=== PATIENT | male | born 1970 | race Caucasian/White ===

== ENCOUNTER 2020-07-22 01:56 | Emergency (ER) | payer OTHER, SELFPAY ==
[2020-07-22 03:03] VITALS: BP 129/75; PULSE 65; RESP 14; TEMP 37.3; O2SAT 97; BMI 23.6
--- NOTE | 2020-07-22 04:36 | ED.BACK ---
HPI - Back Pain/Injury General Chief Complaint: Back Pain/Injury Stated Complaint: Back Pain Time Seen by Provider: 07/22/20 02:14 Source: patient Mode of arrival: ambulatory History of Present Illness HPI Narrative: This is a 49-year-old male who presents with lower back pain without radiation and denies any bowel or bladder dysfunction as well as denying any fever, chills, nausea, vomiting, shortness of breath or chest pain/palpitations. Related Data Allergies Allergy/AdvReac Type Severity Reaction Status Date / Time No Known Allergies Allergy Unverified 11/02/19 17:48 Review of Systems Review of Systems: Pertinent positives and negatives as stated in HPI and 10 point review of systems is otherwise negative. [facility] [place] Past Medical History Source: nursing notes reviewed Medical History Opiate addiction Social History Social History Patient Tobacco Use Status: Current everyday Tobacco user Use of substances other than those prescribed or required for medical reasons: No Advance Directives: No Advance Directives Information Provided: Yes Physical Exam Vital Signs: Vital Signs: Last Vital Signs Temp 98.0 F 07/22/20 05:11 Pulse 63 07/22/20 05:11 Resp 16 07/22/20 06:00 BP 144/77 H 07/22/20 05:11 Pulse Ox 99 07/22/20 05:11 Body Mass Index 23.6 VITAL SIGNS: Reviewed. GENERAL: Well developed, well nourished, in no acute distress. HEAD: Normocephalic/atraumatic EYES: PERRLA, EOMI OROPHARYNX: no oral lesions noted, posterior pharynx clear NECK: Supple, no adenopathy LUNGS: Normal breath sounds. No adventitious sounds or accessory muscle use. SpO2<97> CARDIOVASCULAR: Regular rate and rhythm without noted murmurs ABDOMEN: Soft, non-tender, non-distended with bowel sounds. BACK: No muscle spasm noted and no midline vertebral tenderness but tenderness along the bilateral paraspinal. SKIN: Inspection of the skin reveals no rashes NEUROLOGIC: Alert and oriented x 4. Strength and sensation to light touch were grossly intact x 4. Course Course Course Narrative: 49-year-old male with history and clinical presentation consistent with lower back discomfort without concern for cauda equina or sciatica. Urinalysis was obtained for further evaluation and patient was also provided with combination analgesics. Patient received medications and then left without his discharge paperwork. Discharge Plan Discharge Clinical Impression: Back pain Patient Disposition: Home, Self-Care Instructions: Back Pain (ED) Additional Instructions: Return to the ER for any worsening of symptoms Referrals: Physician,Unknown [Primary Care Provider] - 2 days Print Language: Swedish
[2020-07-22] MEDS: Lidocaine 4 % Patch ADH..PATCH 1 PATCH TRANSDERMA (05:05)
[2020-07-22] MEDS: Acetaminophen 325 MG TABLET 975 MG PO (05:05)
[2020-07-22] MEDS: Ibuprofen 400 MG TABLET PO (05:06)
[2020-07-22 05:11] VITALS: BP 144/77; PULSE 63; RESP 16; TEMP 36.7; O2SAT 99
--- NOTE | 2020-07-22 05:13 | PC.NURSE ---
PT MEDICATED PER MAR. CONTINUES TO REST IN BED SKIN PWD RESPIRATIONS EVEN UNLABORED. AWAITING IMPROVEMENT IN SYMPTOMS AND MD REEVAL.
[2020-07-22 06:00] VITALS: RESP 16
== END 2020-07-22 07:47 | disposition home or self-care (01) ==
PROVIDERS: Emergency Provider Student in an Organized Health Care Education/Training Program
DX: M54.5 Low back pain (principal)
CPT/HCPCS: 99283; 99284

== ENCOUNTER 2022-08-27 12:06 | Outpatient (REF) | payer MEDICAID, SELFPAY ==
[2022-08-27 13:19] LABS: MANUAL DIFF FLAG NO
[2022-08-27 13:36] LABS: Basophils Percent Auto 0.3 % (0-2); Eosinophils Absolute Auto 0.1 X10*3/uL (0.0-0.4); Eosinophils Percent Auto 1.2 % (0-4); Hematocrit 38.1 % (42.0-52.0); Hemoglobin 12.8 g/dl (14.0-18.0); Imm Gran Abs Auto 0.03 X10*3/uL (0.00-0.03); Imm Gran Pct Auto 0.3 % (0.0-0.4); Lymphocytes Absolute Auto 2.9 X10*3/uL (1.2-4.9); Lymphocytes Percent Auto 27.5 % (20-40); Mean Corpuscular HGB Conc 33.6 g/dl (31.0-36.0); Mean Corpuscular Volume 89.4 fL (80.0-98.0); Mean Platelet Volume 10.2 fL (9.4-12.4); Monocytes Absolute Auto 0.5 X10*3/uL (0.1-1.2); Monocytes Percent Auto 5.1 % (2-11); Neutrophils Absolute Auto 6.9 x10*3/uL (2.0-8.3); Neutrophils Percent Auto 65.6 % (45-73); Platelet Count 317 X10*3/uL (160-400); Red Blood Count 4.26 X10*6/uL (4.60-5.80); Red Cell Distribution Width 12.6 % (11.0-16.0); White Blood Count 10.4 X10*3/uL (4.8-10.8)
[2022-08-27 13:43] LABS: Estimated Average Glucose 108 mg/dL; Hemoglobin A1c % 5.4 %
[2022-08-27 14:34] LABS: Alanine Aminotransferase 15 U/L (0-40); Albumin Level 3.9 g/dL (3.5-5.0); Alkaline Phosphatase 103 U/L (39-117); Anion Gap 14 (12-20); Aspartate Amino Transferase 17 U/L (5-37); Bilirubin Total 0.2 mg/dL (0.0-1.0); Blood Urea Nitrogen 13 mg/dL (9-16); Calcium 9.4 mg/dL (8.4-10.2); Carbon Dioxide 24 mmol/L (22-29); Chloride 109 mmol/L (96-108); Cholesterol 138 mg/dL; Estimated Glomerular Filt Rate > 60; Glucose Random 124 mg/dL (60-115); HDL Cholesterol 36 mg/dL; LDL Cholesterol Calculated 80 mg/dl; Potassium 3.3 mmol/L (3.3-5.1); Sodium 144 mmol/L (135-145); Total Protein 6.9 g/dL (6.5-8.0); Triglycerides 114 mg/dL
[2022-08-27 14:39] LABS: TSH reflex Free T4 1.05 uIU/mL (0.32-4.0)
[2022-08-27 14:56] LABS: Folate 14.3 ng/mL (> or = 4.0); Vitamin B12 398 pg/mL (200-900)
[2022-08-27 17:05] LABS: Creatinine Urine 272.83 mg/dL; Microalbum/Creatinine Ratio Ur 5.4 ug/mg cr
[2022-08-28 05:27] LABS: Syphilis Screen Nonreactive (Nonreactive)
[2022-08-28 05:34] LABS: HBsAGNum1 0.36 S/CO (0.00-0.99); HIV AB/AG Nonreactive (Nonreactive); HIV Num 1 0.05 S/CO (0.00-0.99); Hepatitis B Core Antibody Nonreactive (Nonreactive); Hepatitis B Surface Antigen Negative (Negative); ~Hepatitis B Surface Antibody REACTIVE (Nonreactive)
[2022-08-28 12:19] LABS: ~HepC Num1 0.19 S/CO (0.00-0.79); ~Hepatitis C Antibody Nonreactive (Nonreactive)
[2022-08-28 13:39] LABS: CT PCR NOT DETECTED (Not Detect.); NG PCR NOT DETECTED (Not Detect.)
[2022-08-29 20:29] LABS: TS Negative Control Passed; TS Panel A 2; TS Panel B 5; TS Positive Control Passed; TSpotTB Borderline (Negative)
[2022-09-02 18:04] LABS: VITAMIN D (1,25 OH) D3 52 pg/mL; Vit D (1,25-Dihydroxy) Total 52 pg/mL (18-72); Vitamin D (1,25 OH) D2 <8 pg/mL
== END 2022-08-27 12:07 | disposition home or self-care (01) ==
LOC: HO.HHCL 12:06
PROVIDERS: Visit Provider Student in an Organized Health Care Education/Training Program
DX: Z00.00 Encounter for general adult medical examination without abnormal findings (principal)
CPT/HCPCS: 0353U; 80053; 80061; 82043; 82607; 82652; 82746; 83036; 84443; 85025; 86481; 86704; 86706; 86780; 86803; 87340; 87389

== ENCOUNTER 2022-09-10 13:42 | Emergency (ER) | payer MEDICAID, SELFPAY ==
[2022-09-10 13:53] VITALS: BP 139/91; BP 151/87; PULSE 75; PULSE 91; RESP 16; TEMP 37; O2SAT 92; O2SAT 95; BMI 32.2
[2022-09-10 14:01] VITALS: BP 127/67; PULSE 110; RESP 18; O2SAT 97
--- NOTE | 2022-09-10 14:39 | ED.GENADULT ---
HPI - General Adult General Chief complaint: ETOH/Substance Use Stated complaint: SUBSTANCE USE,-NARCAN GIVEN PER EMS Time Seen by Provider: 09/10/22 14:11 Source: patient and EMS Mode of arrival: EMS Limitations: no limitations History of Present Illness HPI narrative: 51 yo male with history of substance use presents to the ER after being found at the [place] bus stop lethargic. 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 Arrives alert, oriented x3. No physical complaints. Admits to using 2 bags of cocaine, denies additional substance use. No SI/HI. Does not want to speak to a legal recovery specialist or go to detox. Related Data Allergies Allergy/AdvReac Type Severity Reaction Status Date / Time No Known Allergies Allergy Unverified 11/02/19 17:48 Review of Systems Review of Systems: Yes all other systems are reviewed and are negative Constitutional: Constitutional: Reports no additional constitutional complaints, Denies body ache(s), Denies chills, Denies fever(s), Denies headache(s) and Denies weakness Eyes: Eyes: Reports no additional eye complaints and Denies change in vision ENT: Reports system reviewed and no additional complaints, except as documented, Denies dizziness, Denies headache(s), Denies nasal congestion, Denies nasal discharge and Denies neck pain Cardiovascular: Cardiovascular: Reports no additional cardiovascular complaints, Denies chest pain, Denies leg edema and Denies dyspnea Respiratory: Respiratory: Reports no additional respiratory complaints, Denies cough and Denies dyspnea Gastrointestinal: Gastrointestinal: Reports no additional gastrointestinal complaints, Denies abdominal pain, Denies diarrhea, Denies nausea and Denies vomiting Genitourinary: Genitourinary: Denies urinary incontinence Musculoskeletal: Musculoskeletal: Reports no additional musculoskeletal complaints, Denies back pain, Denies arthralgias, Denies joint swelling, Denies neck pain, Denies numbness and Denies tingling Integumentary/Breasts: Skin/Breast: Reports system reviewed and no additional complaints, except as docu and Denies rash Neurologic: Reports system reviewed and no additional complaints, except as documented, Denies dizziness, Denies headache(s), Denies numbness, Denies tingling and Denies weakness Psychiatric: Psychiatric: Denies homicidal ideation and Denies suicidal ideation PMFSH Past Medical History Attestation statement: The following information was validated with the patient. Source: old records reviewed and nursing notes reviewed Medical History Opiate addiction Social History Social History Patient Tobacco Use Status: Current everyday Tobacco user Advance Directives: No Advance Directives Information Provided: Yes Physical Exam ED Vital Signs: Vital Signs - 24 hr 09/10/22 13:53 09/10/22 14:01 Temperature 98.6 F Pulse Rate 75 110 H Respiratory Rate 16 18 Blood Pressure 151/87 H 127/67 Pulse Oximetry 92 97 Oxygen Delivery Method Room Air Room Air BMI result Body Mass Index 32.2 Const General: cooperative, healthy appearing, comfortable and no acute distress Orientation/consciousness: patient oriented x3 Limitations: no limitations HENMT Head: Yes normal to inspection Ears: hearing grossly normal bilaterally Eyes General: appearance normal, both eyes and all related structures Pupils: Equal, round and reactive pupils present Neck Neck: Yes normal visual inspection Chest Chest palpation & inspection: normal inspection of the chest Resp Effort & Inspection: normal respiratory effort Auscultation: clear to auscultation bilaterally Cardio Rate: regular rate Rhythm: regular rhythm Peripheral pulses: Peripheral pulses 2+ throughout GI Inspection: Yes normal to inspection Palpation (GI): Soft to palpation and nontender Skin General skin exam: no rashes or lesions noted Neuro General: patient oriented x3 and moves all extremities Cranial nerves: Yes Equal, round and reactive pupils present Cognition (Neuro): normal cognition Gait exam (Neuro): Normal gait present Extrem General: Yes normal to inspection Medical Decision Making Medical Decision Making MDM Narrative: 51 yo male here after being found at the bus stop lethargic, admits to using 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 Denies additional substance use. No SI/HI. No physical complaints. Not interested in going to detox or talking to legal recovery specialist. No concern for acute ingestion or trauma Patient is alert and oriented. Steady gait. Tolerating liquids with no difficulty. Offered to go Narcan and exam Differential Diagnosis Differential Diagnoses: The differential diagnosis associated with the presentation includes polysubstance use Independent Historian Clinical information obtained from an independent historian. History obtained from or confirmed by: EMS Discharge Plan Discharge Clinical Impression: Substance use Patient Disposition: Home, Self-Care Instructions: Polysubstance Abuse (ED) Referrals: Physician,Unknown J [Primary Care Provider] - 1 week Interventions: ED Discharge Assessment Last Done: 09/10/22 14:56 Discharge Date/Time: 09/10/22 14:56
== END 2022-09-10 14:56 | disposition home or self-care (01) ==
PROVIDERS: Emergency Provider Emergency Medicine Emergency Medical Services
DX: F14.129 Cocaine abuse with intoxication, unspecified (principal); R53.1 Weakness
CPT/HCPCS: 99283

== ENCOUNTER 2022-09-10 16:14 | Outpatient (REF) | payer MEDICAID, SELFPAY ==
[2022-09-14 08:59] LABS: Buprenorphine NEGATIVE; Naloxone NEGATIVE; Norbuprenorphine NEGATIVE
== END 2022-09-10 16:15 | disposition home or self-care (01) ==
LOC: HO.HHCLNP 16:14
PROVIDERS: Visit Provider Family Medicine
DX: F11.20 Opioid dependence, uncomplicated (principal)
CPT/HCPCS: 80348; 80362

== ENCOUNTER 2022-10-29 15:39 | Outpatient (REF) | payer MEDICAID, SELFPAY ==
[2022-10-29 16:13] LABS: MANUAL DIFF FLAG NO
[2022-10-29 16:21] LABS: Basophils Percent Auto 0.4 % (0-2); Eosinophils Absolute Auto 0.2 X10*3/uL (0.0-0.4); Eosinophils Percent Auto 1.6 % (0-4); Hematocrit 38.8 % (42.0-52.0); Hemoglobin 13.3 g/dl (14.0-18.0); Imm Gran Abs Auto 0.08 X10*3/uL (0.00-0.03); Imm Gran Pct Auto 0.9 % (0.0-0.4); Lymphocytes Absolute Auto 3.6 X10*3/uL (1.2-4.9); Lymphocytes Percent Auto 38.6 % (20-40); Mean Corpuscular HGB Conc 34.3 g/dl (31.0-36.0); Mean Corpuscular Hemoglobin 30.9 pg (27.0-33.0); Mean Corpuscular Volume 90.2 fL (80.0-98.0); Mean Platelet Volume 10.2 fL (9.4-12.4); Monocytes Absolute Auto 0.6 X10*3/uL (0.1-1.2); Monocytes Percent Auto 5.9 % (2-11); Neutrophils Absolute Auto 4.9 x10*3/uL (2.0-8.3); Neutrophils Percent Auto 52.6 % (45-73); Platelet Count 323 X10*3/uL (160-400); Red Cell Distribution Width 13.8 % (11.0-16.0); White Blood Count 9.3 X10*3/uL (4.8-10.8)
[2022-10-29 16:57] LABS: Iron 77 mcg/dL (45-160); Percent Iron Saturation 23 % (15-50); Total Iron Binding Capacity 329 mcg/dL (228-428); Unsaturated Iron Binding 252 ug/dL
[2022-10-29 17:06] LABS: Ferritin 35 ng/mL (20-250)
[2022-10-31 16:48] LABS: TS Negative Control Passed; TS Panel A 0; TS Panel B 2; TS Positive Control Passed; TSpotTB Negative (Negative)
== END 2022-10-29 15:40 | disposition home or self-care (01) ==
LOC: HO.HHCL 15:39
PROVIDERS: Visit Provider Student in an Organized Health Care Education/Training Program
DX: D50.9 Iron deficiency anemia, unspecified (principal); R76.12 Nonspecific reaction to cell mediated immunity measurement of gamma interferon antigen response without active tuberculosis
CPT/HCPCS: 36415; 82728; 83540; 85025; 86481

== ENCOUNTER 2022-11-17 14:04 | Outpatient (AMB) | payer MEDICAID, SELFPAY ==
[2022-11-17 14:05] VITALS: BP 128/84; PULSE 86; BMI 33.2
--- NOTE | 2022-11-17 14:05 | A.OFFVIS_ITS ---
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 EKG Intake Note: New patient abnormal EKG feeling good Electrophysiology Nurse Practitioner Required: Yes Electrophysiology Nurse Practitioner Name: Oscar marrufo Allergies No Known Allergies Allergy (Unverified 11/02/19 17:48) Medication List - Last Reconciled 11/17/22 by Joaquin Padilla MD acetaminophen 325 mg PO Q8H PRN albuterol sulfate 90 mcg/actuation (Ventolin HFA) 2 puffs inhalation Q6H PRN amoxicillin-pot clavulanate 875-125 mg 1 tab PO BID aripiprazole 5 mg PO QAM buprenorphine-naloxone 8-2 mg (Suboxone) 10 mg sublingual TID clonidine HCl 0.1 mg PO BID famotidine 20 mg PO DAILY furosemide 20 mg PO QAM gabapentin 400 mg PO TID lisinopril 40 mg PO QAM loratadine 10 mg PO DAILY meloxicam 7.5 mg PO QAM naloxone 4 mg/actuation intranasal nortriptyline 50 mg PO BEDTIME risperidone 1 mg PO QAM sertraline 50 mg PO QAM umeclidinium-vilanterol 62.5-25 mcg/actuation (Anoro Ellipta) 1 ea inhalation QAM zolpidem ER 12.5 mg PO BEDTIME PRN HPI HPI Comments History of Present Illness Details Elian was referred here for abnormal EKG. He shows of obtained with help of a certified r d manager over the phone. Patient recent EKG performed because of longstanding hypertension and complaining of cough and congestion. EKG shows normal sinus rhythm with left anterior fascicular block with incomplete right bundle-branch block. Patient is referred here for further evaluation. He denies any clear symptoms exertional chest pain or shortness of breath. He does get exertional fatigue. He denies any orthopnea PND, leg edema. He is scheduled to undergo sleep study in January. Denies any prolonged palpitation irregular heartbeat. He has longstanding history of hypertension which is currently well treated and says a blood pressure is generally well optimized. He also has prior history of opioid use currently on Suboxone therapy. He is also currently on low-dose lie 6 therapy, says at 1 time he was told that he had congestive heart failure. He has had recurrent pneumonia in the past. Unfortunately smokes and continues to smoke about 10 cigarettes a day. He is trying to cut down. He said he also does not exercise much and has gained some weight. [facility] Medical History HTN (hypertension) Opiate addiction Family History (Updated 11/17/22 @ 14:12 by Radhika Johnson [facility]) Father No problems noted. Mother No problems noted. Social History Patient Tobacco Use Status: Current everyday Tobacco user Review of Systems Const Denies chills, Denies daytime sleepiness, Denies fatigue, Denies fever(s), Denies frequent falls, Denies poor appetite, Denies snoring, Denies stops breathing during sleep, Denies weakness, Denies weight gain and Denies weight loss Eyes Denies loss of vision ENT Denies dizziness and Denies hearing loss Card Denies chest pain, Denies claudication, Denies leg edema, Denies lightheadedness, Denies palpitations, Denies dyspnea, Denies dyspnea on exertion and Denies orthopnea Resp Denies cough, Denies excessive phlegm production, Denies dyspnea, Denies dyspnea on exertion, Denies snoring and Denies wheezing GI Denies abdominal pain, Denies hematochezia, Denies change in bowel habits, Denies nausea and Denies vomiting Denies dysuria and Denies urinary frequency Musc Denies arthralgias, Denies muscle weakness, Denies numbness and Denies other (frequent falls) Skin/Breast Denies nail changes and Denies rash Neuro Denies Abnormal speech present, Denies dizziness, Denies frequent falls, Denies loss of vision, Denies memory loss, Denies numbness and Denies weakness Psych Denies depression and Denies memory loss Endo Denies fatigue and Denies palpitations Ga/Lymph Reports easy bruising and Reports other (anemia) Aller/Immun Denies wheezing Physical Exam Vital Signs: Last Vital Signs Pulse 86 11/17/22 14:05 BP 128/84 11/17/22 14:05 BMI result Body Mass Index 33.2 Const General: cooperative, comfortable, no acute distress, alert and awake Nutritional Appearance: obese Orientation/consciousness: patient oriented x3 Limitations: no limitations HEENT Head: Yes normocephalic and Yes atraumatic Neck Neck: Yes trachea midline, Yes supple and Yes no JVD Resp Effort & Inspection: normal respiratory effort Auscultation: clear to auscultation bilaterally Cardio Jugular venous distension: no JVD Palpation: normal PMI Rate: regular rate Rhythm: regular rhythm Heart sounds: S1 normal heart sound present, S2 normal heart sound present, no click, no gallops, no murmurs and no rubs GI Inspection: Yes normal to inspection and Yes obesity Auscultation: normal bowel sounds Skin General skin exam: no rashes or lesions noted Neuro General: patient oriented x3 and no focal motor deficits Speech: No Abnormal speech present Extrem General: Yes no clubbing, cyanosis or edema Assessment & Plan Assessment & Plan (1) Abnormal EKG: Code(s): R94.31 - Abnormal electrocardiogram [ECG] [EKG] Plan: Abnormal EKG in this middle-aged man with longstanding history of hypertension. Possibilities include hypertensive heart disease given longstanding hypertension. Also possibility of obstructive sleep apnea related changes with RV strain is possibility. Suggest an echocardiogram to further evaluate for the same. Further treatment based on the findings. Currently his blood pressure is well optimized advised to continue current therapy. Clinically does appear to have any signs of heart failure. Agree with obstructive sleep apnea assessment as there is high clinical likelihood for the same. Treatment if he has underlying obstructive sleep apnea. Encouraged to continue to participate in regular physical activity and weight loss program in the long run to help his overall health situation. Also complete abstinence from smoking was discussed. He understands agrees. Will follow up in the clinic if need be. Thank you for allowing me to partake in his care Orders: Orders CA echo transthoracic complete Today R94.31 - Abnormal electrocardiogram [ECG] [EKG] Coding Level of Care Code New Pt Level 3 (21553) Diagnoses Abnormal EKG R94.31
== END 2022-11-17 14:29 | disposition home or self-care (01) ==
PROVIDERS: PCP Student in an Organized Health Care Education/Training Program; Visit Provider Internal Medicine Cardiovascular Disease
DX: R94.31 Abnormal electrocardiogram [ECG] [EKG] (principal)
CPT/HCPCS: 99203

== ENCOUNTER → 2022-11-17 14:04 | Outpatient (BNVA) | payer MEDICAID, SELFPAY | PROVIDERS: PCP Student in an Organized Health Care Education/Training Program; Visit Provider Internal Medicine Cardiovascular Disease ==

== ENCOUNTER 2022-11-19 10:39 | Outpatient (REF) | payer MEDICAID, SELFPAY | END 2022-11-19 10:40 | disposition home or self-care (01) | LOC: HO.HHCL 10:39 | PROVIDERS: Visit Provider Student in an Organized Health Care Education/Training Program | DX: D50.9 Iron deficiency anemia, unspecified (principal); R76.12 Nonspecific reaction to cell mediated immunity measurement of gamma interferon antigen response without active tuberculosis | CPT/HCPCS: 36415; 86481 ==

== ENCOUNTER 2022-12-22 22:02 | Emergency (ER) | payer MEDICAID, SELFPAY ==
--- NOTE | ~2022-12-22 | XR_ITS ---
EXAMINATION: XR HIP, LEFT CLINICAL INFORMATION: Pain after fall COMPARISON: CT abdomen pelvis 03/03/2013 TECHNIQUE: Single view pelvis with two views of the left hip. FINDINGS: No acute pelvic or hip fracture. There are degenerative changes seen in the right hip with osteophytes. Mild sclerotic changes are seen at the pubic symphysis. XR/XR hip LT w PEL1V IMPRESSION: No evidence of an acute traumatic osseous injury. Degenerative changes right hip.
[2022-12-22 22:08] VITALS: BP 140/92; PULSE 84; O2SAT 97
[2022-12-22 22:10] VITALS: BMI 32.5
--- NOTE | 2022-12-22 22:25 | ED.PSYCH ---
HPI - Psych General Chief Complaint: ETOH/Substance Use Stated Complaint: SUBSTANCE ABUSE, L HIP PAIN, BACK PAIN Time Seen by Provider: 12/22/22 22:09 Source: patient and old records reviewed Mode of arrival: EMS Limitations: no limitations History of Present Illness HPI Narrative: 52 yo male with hx of HTN, asthma, prior back pain, snorts cocaine and admits to being homeless for the last 3 days states he needs to get back into a program and sober living. He denies IVDA. He states he fell about a month ago and injured his L hip he now has pain and has been having to walk a lot more. He called 911 for help tonight due to pain. NO SI/HI. He wants to go to detox. MD complaint: substance abuse Onset (ago): week(s) Duration: intermittent History of same: Yes Relieving factors: none Exacerbating factors: drug use Context: recent drug abuse and significant life stressor Associated psychiatric symptoms: none Associated symptoms: other (L hip pain) Treatments prior to arrival: none Related Data Home Medications Medication Instructions Recorded Confirmed acetaminophen 325 mg tablet 325 mg PO Q8H PRN fever 11/17/22 11/17/22 albuterol sulfate 90 mcg/actuation 2 puff inhalation Q6H PRN wheezing 11/17/22 11/17/22 aerosol inhaler (Ventolin HFA) amoxicillin 875 mg-potassium 1 tab PO BID 11/17/22 11/17/22 clavulanate 125 mg tablet aripiprazole 5 mg tablet 5 mg PO QAM 11/17/22 11/17/22 buprenorphine 8 mg-naloxone 2 mg 10 mg sublingual TID 11/17/22 11/17/22 sublingual film (Suboxone) clonidine HCl 0.1 mg tablet 0.1 mg PO BID 11/17/22 11/17/22 famotidine 20 mg tablet 20 mg PO DAILY 11/17/22 11/17/22 furosemide 20 mg tablet 20 mg PO QAM 11/17/22 11/17/22 gabapentin 400 mg capsule 400 mg PO TID 11/17/22 11/17/22 lisinopril 40 mg tablet 40 mg PO QAM 11/17/22 11/17/22 loratadine 10 mg tablet 10 mg PO DAILY 11/17/22 11/17/22 meloxicam 7.5 mg tablet 7.5 mg PO QAM 11/17/22 11/17/22 naloxone 4 mg/actuation nasal spray intranasal 11/17/22 11/17/22 nortriptyline 50 mg capsule 50 mg PO BEDTIME 11/17/22 11/17/22 risperidone 1 mg tablet 1 mg PO QAM 11/17/22 11/17/22 sertraline 50 mg tablet 50 mg PO QAM 11/17/22 11/17/22 umeclidinium 62.5 mcg-vilanterol 1 ea inhalation QAM 11/17/22 11/17/22 25 mcg/actuation powdr for inhalation (Anoro Ellipta) zolpidem 12.5 mg tablet,extended 12.5 mg PO BEDTIME PRN insomnia 11/17/22 11/17/22 release,multiphase Allergies Allergy/AdvReac Type Severity Reaction Status Date / Time No Known Allergies Allergy Verified 12/22/22 22:16 Review of Systems Review of Systems: Constitutional : No Fever, No Chills ENT/Mouth : No Ear Pain, No Hoarseness, No sore throat Eyes: No Eye Pain, No Swelling, No Redness, No Foreign Body Cardiovascular : No Chest Pain, No SOB Respiratory : No Cough, No Dyspnea Gastrointestinal : No Nausea, No Vomiting, No Diarrhea, No abdominal Pain Genitourinary : No Dysuria, No Hematuria Musculoskeletal : positive joint pain, No Myalgias, No Joint Swelling Skin : No Skin lacerations, No rash Neuro : No Weakness, No Numbness, No Loss of Consciousness, No Dizziness, No Headache Psych : No Anxiety/Panic, No Depression, no SI/HI Heme/Lymph: no easy bruising, no Lymphadenopathy Endocrine : No Polyuria, No Polydipsia All other systems reviewed and are negative [facility] Past Medical History Attestation statement: The following information was validated with the patient. Source: old records reviewed Medical History Asthma HTN (hypertension) Opiate addiction Family History Family History (Updated 11/17/22 @ 14:12 by Radhika Johnson Henri) Father No problems noted. Mother No problems noted. Social History Social History Patient Tobacco Use Status: Current everyday Tobacco user Advance Directives: No Advance Directives Information Provided: No Physical Exam Vital Signs: Vital Signs: Last Vital Signs Temp 98.1 F 12/22/22 23:07 Pulse 73 12/22/22 23:07 Resp 18 12/22/22 23:07 BP 127/66 12/22/22 23:07 Pulse Ox 93 12/22/22 23:07 O2 Del Method Room Air 12/22/22 23:07 BMI result Body Mass Index 32.5 Appearance: Alert. Oriented X3. No acute distress. Eyes: Pupils equal, round and reactive to light. ENT: Pharynx normal. Neck: Normal inspection. Neck supple. CVS: Normal heart rate and rhythm. Pulses normal. Respiratory: No respiratory distress. Breath sounds normal. Abdomen: Soft and nontender. Skin: Skin warm and dry. Normal skin color. Normal skin turgor. Extremities: No lower extremity edema. No calf ttp . L hip no erythema, warmth or signs of effusion - he is walking around on the joint. Neuro: Oriented X 3. No motor deficit. No sensory deficit. CN-12 intact Course Course Course Narrative: Physician observation started at 1203am. Patient placed in physician observation because the patient needed more time for addiction medicine to help with possible detox and services. At the time observation was started the patient's vitals were stable, patient is alert and oriented. Neuro: nonfocal, CV RRR, Lungs clear Medical Decision Making Medical Decision Making [facility] Narrative: 52 yo male with PMH of asthma, HTN, substance abuse - no IVDA but sniffs at this time c/o traumatic L hip pain from a fall no fevers reported no IVDA to suggest septic joint he is not toxic and is walking on the joint. Will obtain drug screen, COVID swab and xray for fracture - refer to addiction medicine at his request Differential Diagnosis Differential Diagnoses: The differential diagnosis associated with the presentation includes arthritis, traumatic fall Admission/Observation Consideration of admission/observation: Escalation of care including admission/observation considered observe until addiction medicine can see the patient Lab Data [facility] Lab Attestation statement: I reviewed the patient's lab results. Labs: Lab Results 12/22/22 12/22/22 Range/Units 22:47 23:02 Urine Opiates Screen Not Detected (Not Detect) Urine Fentanyl Screen POSITIVE H (Not Detect) Ur Barbiturates Screen Not Detected (Not Detect) Ur Phencyclidine Scrn Not Detected (Not Detect) Ur Amphetamines Screen Not Detected (Not Detect) U Benzodiazepines Scrn Not Detected (Not Detect) Urine Cocaine Screen POSITIVE H (Not Detect) U Marijuana (THC) Screen POSITIVE H (Not Detect) COVID-19 (DARA) Negative (Negative) COVID-19 Clin Com See Note Independent Interpretation I performed an independent interpretation of an: Plain X-Ray Radiology Impression Discussion of test interpretation with radiology: I have reviewed the radiologist's reading. External Record Review External record reviewed: Inpatient record Social Determinants Patient?s care significantly limited by Social Determinants of Health including: Inadequate housing, Low income, Problems related to primary support group and Unemployment Discharge Plan Discharge Clinical Impression: Chronic left hip pain, Polysubstance abuse Patient Disposition: Still a Patient Prescriptions: No Action furosemide 20 mg tablet 20 mg PO QAM naloxone 4 mg/actuation spray,non-aerosol intranasal buprenorphine-naloxone [Suboxone] 8-2 mg film 10 mg sublingual TID Anoro Ellipta 62.5-25 mcg/actuation blister with device 1 ea inhalation QAM famotidine 20 mg tablet 20 mg PO DAILY nortriptyline 50 mg capsule 50 mg PO BEDTIME risperidone 1 mg tablet 1 mg PO QAM albuterol sulfate [Ventolin HFA] 90 mcg/actuation HFA aerosol inhaler 2 puff inhalation Q6H PRN (Reason: wheezing) sertraline 50 mg tablet 50 mg PO QAM meloxicam 7.5 mg tablet 7.5 mg PO QAM acetaminophen 325 mg tablet 325 mg PO Q8H PRN (Reason: fever) gabapentin 400 mg capsule 400 mg PO TID zolpidem 12.5 mg tablet,ext release multiphase 12.5 mg PO BEDTIME PRN (Reason: insomnia) clonidine HCl 0.1 mg tablet 0.1 mg PO BID aripiprazole 5 mg tablet 5 mg PO QAM loratadine 10 mg tablet 10 mg PO DAILY amoxicillin-pot clavulanate 875-125 mg tablet 1 tab PO BID lisinopril 40 mg tablet 40 mg PO QAM
--- NOTE | 2022-12-22 22:54 | MHC.EDTECH ---
Patient came by EMS,changed into hospital attire.Security at bedside for changeover and all belongings went to [facility]. Covid and urine sample collected and sent to lab.
[2022-12-22 23:07] VITALS: BP 127/66; PULSE 73; RESP 18; TEMP 36.7; O2SAT 93
[2022-12-22 23:24] LABS: Amphetamine Screen Urine Not Detected (Not Detect); Barbiturates, Urine Not Detected (Not Detect); Benzodiazepines Screen Urine Not Detected (Not Detect); Cannabinoid Screen Urine POSITIVE (Not Detect); Cocaine Screen Urine POSITIVE (Not Detect); Fentanyl, urine POSITIVE (Not Detect); Opiate Screen Urine Not Detected (Not Detect); Phencyclidine Screen Urine Not Detected (Not Detect)
[2022-12-22 23:31] LABS: COVID-19 Test Negative (Negative); IDNOW Serial# 08D9AD1C
[2022-12-23] MEDS: LORazepam 1 MG TABLET PO (00:51)
--- NOTE | 2022-12-23 01:53 | PC.NURSE ---
pt up and running around the ER; pt has been instructed multiple times to return to his stretcher. pt is very easily redirectable. returns to his stretcher and sleeps.
[2022-12-23 02:37] VITALS: RESP 16
[2022-12-23 07:18] VITALS: RESP 16
[2022-12-23 07:48] VITALS: BP 137/76; PULSE 72; RESP 16; TEMP 36.4; O2SAT 98
--- NOTE | 2022-12-23 09:04 | PC.NURSE ---
sleeping and snoring on off for most of the morning, nad, skin wpd, eating breakfast now
[2022-12-23 09:32] VITALS: BP 145/60; PULSE 56; RESP 16; TEMP 36.3; O2SAT 98
--- NOTE | 2022-12-23 11:19 | MHC.RECOVSUP ---
Met with pt in ED22H who is here for CATHERINE. Pt reports taking about 1/2 gram of heroin nasally and smoking 1 gram of crack a day with last use yesterday. PT has been on 8mg Suboxone but hasn't had it in 2 weeks. Pt is interested in ATS at this time, Bed search in process.
--- NOTE | 2022-12-23 12:49 | MHC.EDTECH ---
Gave patient two orange juice.
== END 2022-12-23 12:59 | disposition home or self-care (01) ==
PROVIDERS: Emergency Provider Emergency Medicine
DX: G89.29 Other chronic pain (principal); M25.552 Pain in left hip; F19.10 Other psychoactive substance abuse, uncomplicated; Z11.52 Encounter for screening for COVID-19; I10 Essential (primary) hypertension; F11.20 Opioid dependence, uncomplicated; F17.200 Nicotine dependence, unspecified, uncomplicated; Z79.899 Other long term (current) drug therapy
CPT/HCPCS: 73502; 80307; 87635; 99284

== ENCOUNTER 2022-12-24 01:01 | Emergency (ER) | payer MEDICAID, SELFPAY ==
--- NOTE | 2022-12-24 04:39 | PC.NURSE ---
pt was going to the pod and then stated he did not want to go to the pod. pt left without being seen.
== END 2022-12-24 02:19 | disposition left against medical advice (07) ==
PROVIDERS: Emergency Provider Emergency Medicine
DX: F11.20 Opioid dependence, uncomplicated (principal); F17.210 Nicotine dependence, cigarettes, uncomplicated

== ENCOUNTER 2022-12-24 21:13 | Emergency (ER) | payer OTHER, SELFPAY ==
[2022-12-24 22:03] VITALS: BP 131/86; PULSE 62; RESP 16; TEMP 36; O2SAT 98; BMI 37.5
--- NOTE | 2022-12-25 00:29 | ED.GENADULT ---
HPI - General Adult General Chief complaint: ETOH/Substance Use Stated complaint: Seeking detox treatment Time Seen by Provider: 12/24/22 23:52 Source: patient, RN notes reviewed, old records reviewed and talent acquisition lead Mode of arrival: ambulatory Limitations: language barrier History of Present Illness HPI narrative: 52-year-old primarily Yoruba-speaking male presents for evaluation of ?detox. ? Patient states that he has been on the streets since last Wednesday He reports he relapsed with heroin and cocaine after previously being clean for 11 months He reports that he is looking for detox and then ?a residential house. ? Patient last used both heroin and cocaine earlier this afternoon Denies any alcohol abuse He states that he is not suicidal but is ?looking for help with mental health. ? He states that he has a history of anxiety and depression Related Data Home Medications Medication Instructions Recorded Confirmed buprenorphine 8 mg-naloxone 2 mg 10 mg sublingual TID 12/24/22 12/25/22 sublingual film (Suboxone) clonidine HCl 0.1 mg tablet 0.1 mg PO BID 12/24/22 12/25/22 fluticasone propionate 50 1 - 2 spray intranasal QAM 12/24/22 12/25/22 mcg/actuation nasal spray,suspension gabapentin 600 mg tablet 600 mg PO TID 12/24/22 12/25/22 lisinopril 40 mg tablet 40 mg PO QAM 12/24/22 12/25/22 loratadine 10 mg tablet 10 mg PO DAILY 12/24/22 12/25/22 zolpidem 12.5 mg tablet,extended 12.5 mg PO BEDTIME PRN insomnia 12/24/22 12/25/22 release,multiphase Allergies Allergy/AdvReac Type Severity Reaction Status Date / Time No Known Allergies Allergy Verified 12/22/22 22:16 Review of Systems Constitutional: Constitutional: Denies chills and Denies fever(s) Cardiovascular: Cardiovascular: Denies chest pain and Denies dyspnea Respiratory: Respiratory: Denies dyspnea Gastrointestinal: Gastrointestinal: Denies abdominal pain Integumentary/Breasts: Skin/Breast: Denies rash PMFSH Past Medical History Medical History Asthma HTN (hypertension) Opiate addiction Family History Family History (Updated 11/17/22 @ 14:12 by Radhika P Elizabeth, RMA) Father No problems noted. Mother No problems noted. Social History Social History Patient Tobacco Use Status: Current everyday Tobacco user Smoked in Last 30 Days: Yes Use of substances other than those prescribed or required for medical reasons: Yes Substance Use Type: Crack/Cocaine and Opiates Substance Use Frequency: Chronic Longstanding Last Used Substance: Just Prior to Admission Any prior treatment program specific to substance use: Yes Advance Directives: No Advance Directives Information Provided: No Physical Exam ED Vital Signs: Vital Signs - 24 hr 12/24/22 22:03 Temperature 96.8 F Pulse Rate 62 Respiratory Rate 16 Blood Pressure 131/86 Pulse Oximetry 98 Oxygen Delivery Method Room Air BMI result Body Mass Index 37.5 Const General: healthy appearing, comfortable, no acute distress, alert and awake Nutritional Appearance: well nourished Orientation/consciousness: patient oriented x3 HENMT Head: Yes normocephalic and Yes atraumatic Eyes Eyelids: Yes eyelids normal Conjunctivae: conjunctivae normal Sclerae: sclerae normal Corneas: corneas normal Pupils: Equal, round and reactive pupils present EOM: EOMs intact bilaterally Neck Neck: Yes full ROM Resp Effort & Inspection: normal respiratory effort, able to speak in complete sentences and not labored GI Inspection: No distended Palpation (GI): Soft to palpation, not firm, nontender, no guarding and not rigid Skin General skin exam: elasticity normal Neuro General: patient oriented x3 Cranial nerves: Yes Equal, round and reactive pupils present and Yes Bilaterally intact EOM present Cognition (Neuro): normal cognition Extrem Other: Moving all extremities well without any obvious deformities Course Reevaluation(s) Reevaluation #1: Patient is now medically cleared for care team evaluation Time: 01:14 Medical Decision Making Medical Decision Making MDM Narrative: 52-year-old male presents for evaluation of seeking detox. He is not in acute withdrawals. He is not suicidal. He is adamant that he is looking for help with detox. He is not suicidal but is seeking help with depression and anxiety which likely relates to his substance abuse and homelessness. Patient will be evaluated by the care team. He was advised that there is no guarantee will be able to find a bed for detox placement Differential Diagnosis Differential Diagnoses: The differential diagnosis associated with the presentation includes Substance abuse Homelessness Detox Polysubstance abuse Heroin abuse Cocaine abuse Lab Data 11/10/23 00:31 12/25/22 00:31 Labs: Lab Results 12/25/22 12/25/22 Range/Units 00:31 00:52 WBC 10.0 (4.8-10.8) X10*3/uL RBC 4.11 L (4.60-5.80) X10*6/uL Hgb 13.1 L (14.0-18.0) g/dl Hct 37.8 L (42.0-52.0) % MCV 92.0 (80.0-98.0) fL MCH 31.9 (27.0-33.0) pg MCHC 34.7 (31.0-36.0) g/dl RDW 13.3 (11.0-16.0) % Plt Count 355 (160-400) X10*3/uL MPV 9.3 L (9.4-12.4) fL Immature Gran % (Auto) 0.2 (0.0-0.4) % Neut % (Auto) 54.7 (45-73) % Lymph % (Auto) 34.2 (20-40) % [place] % (Auto) 7.8 (2-11) % Eos % (Auto) 2.7 (0-4) % Baso % (Auto) 0.4 (0-2) % Lymph # (Auto) 3.4 (1.2-4.9) X10*3/uL [place] # (Auto) 0.8 (0.1-1.2) X10*3/uL Eos # (Auto) 0.3 (0.0-0.4) X10*3/uL Baso # (Auto) 0.0 (0.0-0.2) X10*3/uL Abs Immat Gran (auto) 0.02 (0.00-0.03) X10*3/uL Absolute Neuts (auto) 5.5 (2.0-8.3) x10*3/uL Absolute Nucleated RBC 0.000 (0.0-0.012) X10*3/uL Nucleated RBC % (auto) 0.0 (0.0-0.2) /100WBC Sodium 138 (135-145) mmol/L Potassium 4.0 D (3.3-5.1) mmol/L Chloride 105 (96-108) mmol/L Carbon Dioxide 27 (22-29) mmol/L Anion Gap 10 L (12-20) BUN 15 (9-16) mg/dL Creatinine 0.80 (0.5-1.4) mg/dL Estim Creat Clear Calc 112.2 Estimated GFR > 60 Random Glucose 123 H (60-115) mg/dL Calcium 9.0 (8.4-10.2) mg/dL Total Bilirubin 0.3 (0.0-1.0) mg/dL AST 66 H (5-37) U/L ALT 40 (0-40) U/L Alkaline Phosphatase 103 (39-117) U/L Total Protein 7.1 (6.5-8.0) g/dL Albumin 4.0 (3.5-5.0) g/dL Urine Opiates Screen POSITIVE H (Not Detect) Urine Fentanyl Screen POSITIVE H (Not Detect) Acetaminophen < 3 (<30) mcg/mL Ur Barbiturates Screen Not Detected (Not Detect) Ur Phencyclidine Scrn Not Detected (Not Detect) Ur Amphetamines Screen Not Detected (Not Detect) U Benzodiazepines Scrn Not Detected (Not Detect) Urine Cocaine Screen POSITIVE H (Not Detect) U Marijuana (THC) Screen POSITIVE H (Not Detect) Ethyl Alcohol < 10 mg/dL COVID-19 ([facility]) Negative (Negative) COVID-19 Clin Com See Note Discharge Plan Discharge Clinical Impression: Substance abuse, Homelessness Patient Disposition: Still a Patient Prescriptions: No Action clonidine HCl 0.1 mg tablet 0.1 mg PO BID gabapentin 600 mg tablet 600 mg PO TID lisinopril 40 mg tablet 40 mg PO QAM fluticasone propionate 50 mcg/actuation spray,suspension 1 - 2 spray intranasal QAM loratadine 10 mg tablet 10 mg PO DAILY zolpidem 12.5 mg tablet,ext release multiphase 12.5 mg PO BEDTIME PRN (Reason: insomnia) buprenorphine-naloxone [Suboxone] 8-2 mg film 10 mg sublingual TID
--- NOTE | 2022-12-25 00:35 | PC.NURSE ---
Report given to Rosa Swain RN
[2022-12-25 00:36] LABS: MANUAL DIFF FLAG NO
[2022-12-25 00:46] LABS: Basophils Percent Auto 0.4 % (0-2); Eosinophils Absolute Auto 0.3 X10*3/uL (0.0-0.4); Eosinophils Percent Auto 2.7 % (0-4); Hematocrit 37.8 % (42.0-52.0); Hemoglobin 13.1 g/dl (14.0-18.0); Imm Gran Abs Auto 0.02 X10*3/uL (0.00-0.03); Imm Gran Pct Auto 0.2 % (0.0-0.4); Lymphocytes Absolute Auto 3.4 X10*3/uL (1.2-4.9); Lymphocytes Percent Auto 34.2 % (20-40); Mean Corpuscular HGB Conc 34.7 g/dl (31.0-36.0); Mean Corpuscular Hemoglobin 31.9 pg (27.0-33.0); Mean Platelet Volume 9.3 fL (9.4-12.4); Monocytes Absolute Auto 0.8 X10*3/uL (0.1-1.2); Monocytes Percent Auto 7.8 % (2-11); Neutrophils Absolute Auto 5.5 x10*3/uL (2.0-8.3); Neutrophils Percent Auto 54.7 % (45-73); Platelet Count 355 X10*3/uL (160-400); Red Blood Count 4.11 X10*6/uL (4.60-5.80); Red Cell Distribution Width 13.3 % (11.0-16.0)
[2022-12-25 00:58] LABS: Alanine Aminotransferase 40 U/L (0-40); Alkaline Phosphatase 103 U/L (39-117); Anion Gap 10 (12-20); Aspartate Amino Transferase 66 U/L (5-37); Bilirubin Total 0.3 mg/dL (0.0-1.0); Blood Urea Nitrogen 15 mg/dL (9-16); Carbon Dioxide 27 mmol/L (22-29); Chloride 105 mmol/L (96-108); Creatinine Clr Calc Pharmacy 112.2; Estimated Glomerular Filt Rate > 60; Ethanol < 10 mg/dL; Glucose Random 123 mg/dL (60-115); Sodium 138 mmol/L (135-145); Total Protein 7.1 g/dL (6.5-8.0)
[2022-12-25 00:59] LABS: Acetaminophen LAB < 3 mcg/mL (<30)
[2022-12-25 01:04] LABS: COVID-19 Test Negative (Negative); IDNOW Serial# 6674DD1D
[2022-12-25 01:06] LABS: Amphetamine Screen Urine Not Detected (Not Detect); Barbiturates, Urine Not Detected (Not Detect); Benzodiazepines Screen Urine Not Detected (Not Detect); Cannabinoid Screen Urine POSITIVE (Not Detect); Cocaine Screen Urine POSITIVE (Not Detect); Fentanyl, urine POSITIVE (Not Detect); Opiate Screen Urine POSITIVE (Not Detect); Phencyclidine Screen Urine Not Detected (Not Detect)
[2022-12-25 02:09] LABS: Salicylate < 5.0 mg/dL (15-30)
--- NOTE | 2022-12-25 05:49 | PC.NURSE ---
Patient is currently in bed appears sleeping, no distress observed/reported, med rec completed/pending provider's approval, behavior non concerning, labs completed/resulted, care consult ordered/pending evaluation, will continue to monitor.
[2022-12-25 06:44] VITALS: RESP 18
--- NOTE | 2022-12-25 07:14 | PC.NURSE ---
patient arbitrarily undressing periodically and voided on onesself, given new pants, redirectable
--- NOTE | 2022-12-25 11:09 | MHC.RECOVRN ---
T/W made aware that patient has been cleared by Care Team and is requesting ATS. Referral for ATS sent to [facility].
[2022-12-25 12:42] VITALS: PULSE 65
--- NOTE | 2022-12-25 13:08 | MHC.RECOVRN ---
Met with pt in [facility], along with certified court interpreter and paper cutter Alia, to follow up regarding ATS bedsearch and to inform pt [facility] does not have bed availability. Pt laying in bed, sleeping, wakes to voice. Appears comfortable, is not experiencing withdrawal at this time. Pt reports heroin/fentanyl use, 5+ bags daily, IN, x 1 week. Pt reports recurrence last Wednesday after 10 months in recovery. Pt reports he had been on Suboxone, last dose 12/17, through [facility]. Pt denies other substances. Pt reports last ATS 1 year ago at [place]. Pt is willing to go anywhere for treatment. Bedsearch continues.
--- NOTE | 2022-12-25 14:11 | MHC.RECOVRN ---
Initiated bed search for patient per his request. [facility]-no beds [place] [facility]-none at this time [facility]-wait list [place] [facility]-no beds [facility]no beds [facility]-No answer and [facility] full [place]-left message [facility]-left message [facility]-no beds. Will continue to search.
--- NOTE | 2022-12-25 15:26 | MHC.RECOVRN ---
Discussed bedsearch results with pt, pt plans to dc and follow up with [facility] to continue bed[facility]. Provider and RN aware.
== END 2022-12-25 15:28 | disposition home or self-care (01) ==
PROVIDERS: Physician Assistant; Emergency Provider Emergency Medicine Emergency Medical Services
DX: F19.10 Other psychoactive substance abuse, uncomplicated (principal); F32.A Depression, unspecified; F41.9 Anxiety disorder, unspecified; I10 Essential (primary) hypertension; F11.20 Opioid dependence, uncomplicated; J45.909 Unspecified asthma, uncomplicated; Z79.899 Other long term (current) drug therapy; Z59.00 Homelessness unspecified; Z11.52 Encounter for screening for COVID-19
CPT/HCPCS: 80053; 80143; 80179; 80307; 85025; 87635; 99284; 99285; S9485

== ENCOUNTER 2023-03-12 12:28 | Outpatient (REF) | payer MEDICAID, SELFPAY ==
--- NOTE | ~2023-03-12 | XR_ITS ---
EXAMINATION: XR LUMBOSACRAL SPINE WITH OBLIQUES CLINICAL INFORMATION: Acute on chronic low back pain COMPARISON: None available. TECHNIQUE: AP, both oblique, and lateral views of the lumbar spine. Lateral view of the lumbosacral junction. FINDINGS: There is normal lumbar lordosis. The vertebral heights and alignment is normal. There is loss of L2-L3 through L5-S1 disc heights with mild ventral spondylosis. No aggressive lytic or sclerotic process seen. SI joints are symmetrical and normal. The paravertebral soft tissues are normal. XR/XR lumbar spine 4V min IMPRESSION: Degenerative disc changes with ventral spondylosis lumbar spine. No visible acute fracture or dislocation seen. There is no lytic process.
== END 2023-03-12 12:29 | disposition home or self-care (01) ==
LOC: HO.HHCX 12:28
PROVIDERS: Visit Provider Registered Nurse
DX: M54.42 Lumbago with sciatica, left side (principal); M54.41 Lumbago with sciatica, right side; G89.29 Other chronic pain
CPT/HCPCS: 72110

== ENCOUNTER 2023-05-07 10:00 | Outpatient (RCR) | payer MEDICAID, SELFPAY | END 2023-09-13 15:50 | disposition home or self-care (01) | LOC: HO.PT 10:00 | PROVIDERS: PCP Student in an Organized Health Care Education/Training Program; Visit Provider Registered Nurse | DX: M54.42 Lumbago with sciatica, left side (principal); M54.41 Lumbago with sciatica, right side; G89.29 Other chronic pain | CPT/HCPCS: 97110; 97161; 97535 ==